=== PATIENT | female | born 1965 | race Caucasian/White ===

== ENCOUNTER 2017-01-03 21:41 | Observation (INO) | payer OTHER ==
[2017-01-03] MEDS: SODIUM CHLORIDE 0.9% FLUSH 10 ML FLUSH IV FLUSH SCH (21:00)
[~2017-01-03 21:41] MED LIST: ALPR.25 PO; ASPI-516 CHEW; CALC-262; IMIT50TA PO; LISI-515 PO; METF1000 PO; PRIL20TA2 PO; SODIUM CHLORIDE 0.9% FLUSH 10 ML FLUSH IV FLUSH PRN
[2017-01-03 21:45] VITALS: BP 107/70; PULSE 73; RESP 20; TEMP 96.6; O2SAT 94
[2017-01-03 21:49] VITALS: PULSE 64
[2017-01-03] MEDS ORDERED: ONDANSETRON HCL 4 MG/2 ML VIAL IV PUSH PRN (22:15)
[2017-01-03 23:40] VITALS: O2SAT 96
[2017-01-04 00:03] VITALS: PULSE 79
[2017-01-04 00:09] LABS: CREATINE KINASE 77 U/L (26-192)
[2017-01-04 04:00] VITALS: BP 119/79; PULSE 75; RESP 20; TEMP 96.4; O2SAT 97
[2017-01-04 04:01] VITALS: PULSE 62
[2017-01-04 08:00] VITALS: BP 128/89; PULSE 63; RESP 16; TEMP 97.1; O2SAT 97
[2017-01-04] MEDS: SODIUM CHLORIDE 0.9% FLUSH 10 ML FLUSH IV FLUSH SCH (08:26)
[2017-01-04] MEDS ORDERED: ASPIRIN EC 325 MG TABEC PO SCH (09:00)
[2017-01-04] MEDS ORDERED: ALPRAZolam 0.25 MG TAB PO PRN (09:00)
--- NOTE | 2017-01-04 09:20 | HHI.HP ---
[facility] Non-Staff Admission Diagnosis Diagnoses: (1) Chest pain Diagnosis: Principal Chief Complaint: Chest pain Travel History International Travel<30 Days: No Contact w/Intl Traveler <30 Da: No History of Present Illness Written by Roosevelt Kline, acting as scribe for Dr. Kelsey on 01/04/17 at 09 :10. 52-year-old female with known history of hypertension, diabetes, anxiety, migraine cephalgia who presented to hospital because of chest discomfort. Patient states that she has normal state of health until 12:30 yesterday afternoon while she was working. She developed left sternal border chest discomfort that radiated into her left shoulder. She states that it was a gradual pain that progressively got worse until a 6/10 on a pain scale. She described as a pushing type pain. She states that if she shrugs her shoulders upward that the pain actually improved. She denied any nausea, vomiting, lightheadedness, dizziness, shortness of breath, lower extremity edema. The patient went home and she laid down to try to resolve the pain, however did not improve. Her then took her to the ER in [place] for evaluation. Patient was given aspirin and nitroglycerin emergency department with complete resolution of her chest discomfort. At the present time she is asymptomatic. Patient states that she had similar pain impression 1 year ago and went to her primary medical doctor and had workup done with EKG which was normal. Patient does have increased risk factors to include age, hypertension, diabetes, history tobacco use, early onset heart disease. Because of reasons it was recommended by the ER physician that the patient be observed in the chest pain center. Review of Systems Cardiovascular: COMPLAINS OF: Chest pain Except as stated in HPI: all other systems reviewed are Neg Past Family Social History Past Medical History Hypertension Diabetes Anxiety Migraine cephalgia Past Surgical History Breast cyst removal 2 Reported Medications Reported Meds & Active Scripts Active Reported Imitrex (Sumatriptan Succinate) 50 Mg Tab 50 Mg PO ONCE PRN If a satisfactory response has not been obtained at 2 hours, a second dose may be administered Prilosec (Omeprazole Magnesium) 20 Mg Tab 40 PO DAILY Xanax (Alprazolam) 0.25 Mg Tab 0.25 Mg PO Q4H PRN Calcium with Vit D Tablet (Calcium Citrate/Vitamin D2) 1,500 Mg-200 Unit Tablet Aspirin 81 Mg Chew 81 Mg CHEW DAILY Lisinopril 20 Mg Tab 20 Mg PO DAILY Metformin (Metformin HCl) 1,000 Mg Tab 1,000 Mg PO BIDPC Allergies: Coded Allergies: No Known Allergies (Unverified , 01/03/17) Family History Reviewed and significant for father at age 59 from myocardial infarction Social History Patient states that she quit smoking 30 years ago. She denies any illicit drugs. She does drink alcohol approximately 1-2 drinks on the weekends Physical Exam Vital Signs Vital Signs Date Time Temp Pulse Resp B/P (MAP) Pulse Ox O2 Delivery O2 Flow Rate FiO2 01/04/17 08:00 97.1 63 16 128/89 (102) 97 01/04/17 04:01 62 01/04/17 04:00 96.4 75 20 119/79 (92) 97 01/04/17 00:03 79 01/03/17 23:40 96 21 01/03/17 21:49 64 01/03/17 21:45 96.6 73 20 107/70 (82) 94 Physical Exam GENERAL: Well-developed, well-nourished, in no acute distress. alert and orientated HEENT: Head is normocephalic without any lesions or masses noted. Facial features are symmetric. Eyes: Pupils equal round reactive to light. Extraocular muscles are intact. Conjunctivae were clear. Oropharyngeal: Pharynx without any erythema edema. Tongue is midline without deviation. Buccal mucosa is moist without any masses or lesions NECK: Supple without any masses. Trachea midline no deviation. No JVD, no bruits are appreciated. Reproducible tenderness noted at the spot of chest pain in the left anterior chest. CARDIAC: Regular rhythm, regular rate. S1/S2 are heard. No murmurs gallops or rubs. LUNGS: Clear to auscultation bilaterally. No wheeze, rhonchi or rales. No use of accessory muscles on inspiration or expiration. ABDOMEN: Soft, nontender. Nondistended. Bowel sounds heard in all 4 quadrants. No organomegaly or masses. Negative rebound, negative guarding EXTREMITIES: No edema, pulses are equal bilaterally. No cyanosis or clubbing NEUROLOGY: Mood and affect appear appropriate. Cranial nerves II through XII grossly intact. Muscle strength 5/5 in upper and lower extremities bilaterally. Deep tendon reflexes are 2+ in upper and lower extremities bilaterally. Laboratory Laboratory Tests Test 01/03/17 23:15 Total Creatine Kinase 77 Troponin I LESS THAN 0.02 Caprini VTE Risk Assessment Caprini VTE Risk Assessment: No/Low Risk (score <= 1) Caprini Risk Assessment Model Point Value = 1 Point Value = 2 Point Value = 3 Point Value = 5 Age 41-60 Minor surgery BMI > 25 kg/m2 Swollen legs Varicose veins or History of unexplained or recurrent spontaneous Oral contraceptives or hormone replacement Sepsis (< 1 month) Serious lung disease, including pneumonia (< 1 month) Abnormal pulmonary function Acute myocardial infarction Congestive heart failure (< 1 month) History of inflammatory bowel disease Medical patient at bed rest Age 61-74 Arthroscopic surgery Major open surgery (> 45 min) Laparoscopic surgery (> 45 min) Malignancy Confined to bed (> 72 hours) Immobilizing plaster cast Central venous access Age >= 75 History of VTE Family history of VTE Factor V Leiden Prothrombin [id number] Lupus anticoagulant Anticardiolipin antibodies Elevated serum homocysteine Heparin-induced thrombocytopenia Other congenital or acquired thrombophilia Stroke (< 1 month) Elective arthroplasty Hip, pelvis, or leg fracture Acute spinal cord injury (< 1 month) Prophylaxis Regimen Total Risk Factor Score Risk Level Prophylaxis Regimen 0-1 Low Early ambulation 2 Moderate Order ONE of the following: *Sequential Compression Device (SCD) *Heparin 5000 units SQ BID 3-4 Higher Order ONE of the following medications: *Heparin 5000 units SQ TID *Enoxaparin/Lovenox 40 mg SQ daily (WT < 150 kg, CrCl > 30 mL/min) *Enoxaparin/Lovenox 30 mg SQ daily (WT < 150 kg, CrCl > 10-29 mL/min) *Enoxaparin/Lovenox 30 mg SQ BID (WT < 150 kg, CrCl > 30 mL/min) AND/OR *Sequential Compression Device (SCD) 5 or more Highest Order ONE of the following medications: *Heparin 5000 units SQ TID (Preferred with Epidurals) *Enoxaparin/Lovenox 40 mg SQ daily (WT < 150 kg, CrCl > 30 mL/min) *Enoxaparin/Lovenox 30 mg SQ daily (WT < 150 kg, CrCl > 10-29 mL/min) *Enoxaparin/Lovenox 30 mg SQ BID (WT < 150 kg, CrCl > 30 mL/min) AND *Sequential Compression Device (SCD) Assessment and Plan Assessment and Plan Chest pain, atypical - Patient has have increased risk factors to include age, hypertension, diabetes , history tobacco use, family history of early onset heart disease - Patient had been ruled out for acute coronary event with serial cardiac enzymes that are negative, serial EKG shows sinus rhythm without any changes - We'll pursue exercise stress test rule out any underlying ischemia - Continue aspirin Diabetes - Accu-Cheks with sliding scale insulin Hypertension - Continue home medications DVT prevention - Low risk, early ambulation Discharge disposition Discharge home in stable condition as stress test is negative. Activity: Ad bijan. Diet: Diabetic diet Medications per medication reconciliation Follow-up primary medical doctor in one week This note was transcribed by scribe Jhonny Kline. I, Tristian Kelsey, personally performed the history, physical exam, and medical decision making; and confirmed the accuracy of information in the transcribed note. Authenticated by Tristian Kelsey on 1710 on 01/04/17. All orders entered by Jhonny Kline were at my discretion. Patient is clinically stable after the stress test and is asymptomatic from any chest pain. Problem Qualifiers (1) Chest pain: Qualified Codes: R07.9 - Chest pain, unspecified Roosevelt Kline Jan 04, 2017 09:20 Tristian Kelsey MD Jan 04, 2017 19:02
--- NOTE | 2017-01-04 09:37 | EKG ---
Date Performed: 01/04/2017 Time Performed: 00:03:22 PTAGE: 52 years EKG: Sinus rhythm MINIMAL VOLTAGE CRITERIA FOR LVH, CONSIDER NORMAL VARIANT BORDERLINE ECG NO PREVIOUS TRACING DOCTOR: Jeet Hensley Interpretating Date/Time 01/04/2017 09:33:44
--- NOTE | 2017-01-04 11:18 | HHI.DCPOC ---
Discharge Care Plan Diagnosis: (1) Chest pain Goals to Promote Your Health * To prevent worsening of your condition and complications * To maintain your health at the optimal level Directions to Meet Your Goals Take your medications as prescribed Follow your dietary instruction Follow activity as directed Keep your appointments as scheduled Take your immunizations and boosters as scheduled If your symptoms worsen call your PCP, if no PCP go to Urgent Care Center or Emergency Room Smoking is Dangerous to Your Health. Avoid second hand smoke Call the 24-hour hour crisis hotline for domestic abuse at Roosevelt Kline Jan 04, 2017 11:18
--- NOTE | 2017-01-04 12:45 | TR ---
Date Performed: 01/04/2017 Time Performed: 10:22:29 DOCTOR: Joe Zavaleta DRUG LIST: CLINICAL HISTORY: REASON FOR TEST: REASON FOR ENDING: Completed Protocol OBSERVATION: Arrhythmia: None Chest Pain: None CONCLUSION: Patient tolerated DANTE protocol with Total Exercise Time=6:00 Maximum EQ=318 % Max HR Achieved=89.0% Maximum UU=963/85, Patient was asymptomatic during entire test. Testing stopped sec ondary to goals acheived. Patient reached target HR. During peak exercise, patient had quick upslopin g ST segments. no significant ST depressions. HR and BP appropriate response to exercise. Recovery pe riod,. HR and BP returned to baseline COMMENTS: Patient exercised using the Dante protocol. No electrocardiographic changes were seen to suggest ischemia. Hemodynamic response to exercise was normal. No significant arrhythmia was prese nt.
== END 2017-01-04 12:24 | disposition home or self-care (01) ==
LOC: PHEDDLT 21:41 → PH3A 21:42
PROVIDERS: ADMIT Hospitalist; ATTEND Hospitalist
DX: R07.89 Other chest pain (principal); I10 Essential (primary) hypertension; E11.9 Type 2 diabetes mellitus without complications; G43.909 Migraine, unspecified, not intractable, without status migrainosus; F41.9 Anxiety disorder, unspecified
CPT/HCPCS: 71010; 80048; 82550; 82552; 84484; 85025; 85610; 85730; 93005; 93017; 99285; G0378